=== PATIENT | male | born 1960 | race Two or more races ===

== ENCOUNTER 2023-11-20 18:24 | Inpatient (IN) | payer SELFPAY ==
[~2023-11-20] VITALS: Ht 172.7 cm; Wt 71.4 kg
[2023-11-20 19:15] LABS: Basophils # (auto) 0.1 10 ^3/uL (0-0.2); Basophils % (auto) 1.3 % (0.0-2.0); Eosinophils # (auto) 0.3 10 ^3/uL (0-0.8); Eosinophils % (auto) 2.6 % (0.0-7.0); Hematocrit 48.8 % (41.0-53.0); Hemoglobin 16.7 g/dL (13.5-17.5); Lymphocytes # (auto) 3.5 10 ^3/uL (0.4-5.4); Lymphocytes % (auto) 35.8 % (10.0-50.0); Mean Corpuscular Hemoglobin 32.5 pg (28.0-32.0); Mean Corpuscular Hgb Conc. 34.2 g/dL (32.0-36.0); Monocytes # (auto) 0.6 10 ^3/uL (0-1.3); Monocytes % (auto) 6.5 % (0.0-12.0); Neutrophils # (auto) 5.3 10 ^3/uL (1.6-8.6); Neutrophils % (auto) 53.8 % (37.0-80.0); Red Blood Cells 5.13 10^6/uL (4.5-5.90); Red Cell Distribution Width 13.4 % (11.8-14.3); White Blood Cell 9.9 10^3/uL (4.4-10.8)
[2023-11-20 19:29] LABS: INR 0.98 (0.9-1.15); Partial Thromboplastin Time 27.9 SEC (24.5-34.5); Prothrombin Time 10.3 sec (9.3-11.8)
[2023-11-20 19:33] LABS: Alanine Aminotransferase 18 U/L (7-40); Albumin 4.9 g/dL (3.2-4.8); Alkaline Phosphatase 109 U/L (46-116); Anion Gap 9 (5-15); Aspartate Aminotransferase 19 U/L (13-40); BUN/Creatinine Ratio 6.6 (10.0-20.0); Bilirubin, Total 0.7 mg/dL (0.2-1.0); Blood Urea Nitrogen 6 mg/dL (9-23); Calcium 9.4 mg/dL (8.7-10.4); Carbon Dioxide 22 mmol/L (20-30); Chloride 107 mmol/L (98-107); Glucose 110 mg/dL (74-106); Potassium 3.5 mmol/L (3.5-5.1); Sodium 138 mmol/L (136-145); Total Protein 7.6 g/dL (5.7-8.2)
[2023-11-20] MEDS ORDERED: NITROGLYCERIN 0.4 MG SL TAB SL ONE (21:15)
[2023-11-20] MEDS ORDERED: PANTOPRAZOLE 40 MG/10 ML VIAL INJ IV ONE (21:15)
[2023-11-20] MEDS ORDERED: ASPirin 325 MG TAB PO ONE (21:15)
[2023-11-20] MEDS ORDERED: TEMAZEPAM 15 MG CAP PO PRN (21:30)
[2023-11-20] MEDS ORDERED: ONDANSETRON HCL 4 MG/2 ML VIAL IV PRN (21:30)
[2023-11-20] MEDS ORDERED: MORPHINE SULFATE INJ 2 MG/ml SYRG IV PRN (21:30)
[2023-11-20] MEDS ORDERED: NITROGLYCERIN 0.4 MG SL TAB SL PRN (21:30)
[2023-11-20] MEDS ORDERED: ATORVASTATIN 20 MG TAB PO SCH (22:00)
[2023-11-21] VITALS (10 sets, daily range): BP systolic 90–151; BP diastolic 56–92; PULSE 65–78; RESP 16–20; TEMP 97.3–98.3; O2SAT 97–100
[2023-11-21] MEDS ORDERED: ONDANSETRON HCL 4 MG/2 ML VIAL ONE (01:53)
[2023-11-21 06:26] LABS: Basophils # (auto) 0.1 10 ^3/uL (0-0.2); Basophils % (auto) 0.8 % (0.0-2.0); Eosinophils # (auto) 0.1 10 ^3/uL (0-0.8); Eosinophils % (auto) 0.8 % (0.0-7.0); Hematocrit 46.7 % (41.0-53.0); Hemoglobin 15.9 g/dL (13.5-17.5); Lymphocytes # (auto) 1.5 10 ^3/uL (0.4-5.4); Lymphocytes % (auto) 18.5 % (10.0-50.0); Mean Corpuscular Hemoglobin 32.4 pg (28.0-32.0); Mean Corpuscular Hgb Conc. 33.9 g/dL (32.0-36.0); Mean Corpuscular Volume 95.5 fL (80.0-100.0); Monocytes # (auto) 0.5 10 ^3/uL (0-1.3); Monocytes % (auto) 5.7 % (0.0-12.0); Neutrophils # (auto) 6.1 10 ^3/uL (1.6-8.6); Neutrophils % (auto) 74.2 % (37.0-80.0); Red Blood Cells 4.89 10^6/uL (4.5-5.90); Red Cell Distribution Width 13.3 % (11.8-14.3); White Blood Cell 8.3 10^3/uL (4.4-10.8)
[2023-11-21 06:27] LABS: Chloride 107 mmol/L (98-107); Potassium 3.9 mmol/L (3.5-5.1); Sodium 140 mmol/L (136-145)
[2023-11-21 06:28] LABS: Anion Gap 9 (5-15); Calcium 9.3 mg/dL (8.5-10.1); Carbon Dioxide 24 mmol/L (20-30)
[2023-11-21 06:33] LABS: BUN/Creatinine Ratio 6.7 (10.0-20.0); Blood Urea Nitrogen 6 mg/dL (9-23); Glucose 102 mg/dL (74-106)
[2023-11-21 07:38] LABS: Urine WBC None Seen /hpf (0 - 3)
[2023-11-21 07:49] LABS: Urine Bacteria NONE SEEN /hpf (None Seen); Urine Blood Negative /uL (Negative); Urine Clarity Clear (Clear); Urine Color Yellow (Yellow); Urine Protein, UAD Negative (Negative); Urine Specific Gravity 1.021 (1.001-1.035); Urine pH 7.5 (5.0-8.0)
[2023-11-21] MEDS: ASPirin 81 mg TAB PO SCH (09:24)
[2023-11-21] MEDS: LISINOPRIL 10 MG TAB PO SCH (09:25)
[2023-11-21] MEDS: LEVOTHYROXINE SODIUM 112 MCG TAB PO SCH (09:27)
[2023-11-21] MEDS: ENOXAPARIN SOD 40 MG/0.4 ML SYRINGE SC SCH (09:28)
[2023-11-21 10:47] LABS: Amphetamine Screen, Urine Neg (NEGATIVE)
[2023-11-21 10:48] LABS: Barbiturate Scree,Urine Neg (NEGATIVE)
[2023-11-21 10:49] LABS: Benzodiazephine Screen, Urine Neg (NEGATIVE); Cannabinoid Screen, Urine Pos (NEGATIVE); Cocaine Screen, Urine Neg (NEGATIVE); Opiate Scree,Urine Neg (NEGATIVE); Phencyclidine Screen, Urine Neg (NEGATIVE)
[2023-11-21 12:56] LABS: Free T3 3.18 pg/mL (2.3-4.2)
[2023-11-21 12:57] LABS: Free T4 (Free Thyroxine) 1.09 ng/dL (0.89-1.76)
[2023-11-21] MEDS ORDERED: ADENOSINE 57 MG in GIVE UN-DILUTED 0 ML IV ONE (13:45)
[2023-11-21 15:26] LABS: Magnesium 2.2 mg/dL (1.6-2.6)
[2023-11-21] MEDS: ACETAMINOPHEN 325 MG TAB PO PRN (21:42)
[2023-11-21] MEDS ORDERED: ATORVASTATIN 20 MG TAB PO SCH (22:00)
[2023-11-22] MEDS: ACETAMINOPHEN 325 MG TAB PO PRN (04:13)
[2023-11-22 05:00] VITALS: BP 107/80; PULSE 63; RESP 18; TEMP 97.3; O2SAT 98
[2023-11-22] MEDS: LEVOTHYROXINE SODIUM 112 MCG TAB PO SCH (05:54)
[2023-11-22 08:00] VITALS: PULSE 58
[2023-11-22 09:00] VITALS: BP 104/74; PULSE 65; RESP 18; TEMP 97.4; O2SAT 97
[2023-11-22] MEDS: LISINOPRIL 10 MG TAB PO SCH (09:41)
[2023-11-22] MEDS: ASPirin 81 mg TAB PO SCH (09:41)
[2023-11-22] MEDS: ENOXAPARIN SOD 40 MG/0.4 ML SYRINGE SC SCH (09:42)
[2023-11-22] MEDS ORDERED: LEV100T PO (10:38)
[2023-11-22] MEDS ORDERED: ATO40T PO (10:38)
[2023-11-22] MEDS ORDERED: LISI20TA56 PO (10:38)
[2023-11-22] MEDS ORDERED: ASPI-498 PO (10:38)
[2023-11-22 13:00] VITALS: BP 128/81; PULSE 52; RESP 16; TEMP 97.5; O2SAT 99
== END 2023-11-22 14:47 | disposition home or self-care (01) | DRG 311 ==
LOC: ER 18:24 → TELE 21:36 → TELE-EAST 11-21 02:29
PROVIDERS: ADMIT Nurse Practitioner; ATTEND Family Medicine
DX: I20.0 Unstable angina (principal); I10 Essential (primary) hypertension; F12.10 Cannabis abuse, uncomplicated; F41.9 Anxiety disorder, unspecified; F10.90 Alcohol use, unspecified, uncomplicated; Y90.9 Presence of alcohol in blood, level not specified; E03.9 Hypothyroidism, unspecified; Z82.49 Family history of ischemic heart disease and other diseases of the circulatory system; Z80.9 Family history of malignant neoplasm, unspecified
CPT/HCPCS: 36415; 71045; 78452; 80048; 80053; 80061; 80307; 81001; 83605; 83690; 83735; 84439; 84443; 84481; 84484; 85025; 85379; 85610; 85730; 93005; 93017; 93306; 96374; 96375; C9113; G0378; J0153; J2405